=== PATIENT | male | born 1990 | race Two or more races ===

== ENCOUNTER 2017-02-24 22:41 | Inpatient (IN) | payer BC, MEDICAID ==
[~2017-02-24] VITALS: Ht 175.3 cm; Wt 79.7 kg
[2017-02-24 23:15] LABS: Basophils # (auto) 0 uL; Basophils % (auto) 0.1 % (0.0-2.0); Eosinophils # (auto) 0.1 uL; Eosinophils % (auto) 0.8 % (0.0-7.0); Hematocrit 50.8 % (41.0-53.0); Hemoglobin 17.3 g/dL (13.5-17.5); Lymphocytes # (auto) 0.6 uL; Lymphocytes % (auto) 5.4 % (10.0-50.0); Mean Corpuscular Hgb Conc. 34.1 g/dL (32.0-36.0); Monocytes # (auto) 0.4 uL; Monocytes % (auto) 3.3 % (0.0-12.0); Neutrophils # (auto) 9.7 uL; Neutrophils % (auto) 90.4 % (37.0-80.0); Platelet Count (auto) 279 10^3/uL (140-450); Red Cell Distribution Width 12.9 % (11.6-16.0); White Blood Cell 10.7 10^3/uL (4.4-10.8)
[2017-02-24 23:17] LABS: Urine Bilirubin Negative (Negative); Urine Blood Negative /uL (Negative); Urine Color Yellow (Yellow); Urine Nitrite Negative (Negative); Urine RBC <1 /hpf (0 - 3); Urine Urobilinogen Normal (Negative)
[2017-02-24 23:21] LABS: Urine Glucose 4+ mg/dL (Normal); Urine Ketone 2+ (Negative)
[2017-02-24 23:36] LABS: Albumin 3.7 g/dL (3.4-5.0); BUN/Creatinine Ratio 21.7; Calcium 8.6 mg/dL (8.5-10.1); Potassium 3.7 mmol/L (3.5-5.1)
[2017-02-24 23:39] LABS: Bilirubin, Total 1.4 mg/dL (0.2-1.0); Total Protein 7.4 g/dL (6.4-8.2)
[2017-02-25] MEDS ORDERED: SODIUM CHLORIDE 0.9% 2,000 ML IV ONE (01:15)
[2017-02-25] MEDS ORDERED: ONDANSETRON HCL 4 MG/2 ML VIAL IV ONE (01:15)
[2017-02-25] MEDS ORDERED: D5W/ SOD CHL 0.9%/KCL 20MEQ 1,000 ML IV ONE (03:15)
[2017-02-25] MEDS ORDERED: InsuLIN REG 1unit/0.01ml Soln (100units/ml) IV ONE (03:15)
[2017-02-25] MEDS ORDERED: InsuLIN REG 1unit/0.01ml Soln (100units/ml) SC ONE (04:15)
[2017-02-25 04:24] LABS: Allen Test Yes; Base Excess 1.7 mmol/L (-2.0-2.0); Blood 02Sat 96.1 % (96-100); Blood COHb 0.6 % (0.5-1.5); Blood MetHb 0.2 % (0.0-1.5); HCO3 25.3 mmol/L (22-26.0); HHb 3.9 % (0.0-5.0); MODE ROOM AIR; O2Hb 95.3 % (94.0-97.0); PCO2 36.9 mmHg (35.0-45.0); PCO2(T) 36.9 mmHg (35.0-45.0); PO2 87.8 mmHg (80.0-100.0); PO2(T) 87.8 mmHg (80.0-100.0); Sample Type Arterial; pH 7.454 (7.350-7.450)
[2017-02-25] MEDS ORDERED: SODIUM CHLORIDE 0.9% 1,000 ML IV SCH (04:42)
[2017-02-25] MEDS ORDERED: DEXTROSE (50%) 50ML SYRG IV PRN (04:45)
[2017-02-25] MEDS ORDERED: HYDROcodone-ACET 5/325MG TAB PO PRN (04:45)
[2017-02-25] MEDS ORDERED: ACETAMINOPHEN 325 MG TAB PO PRN (04:45)
[2017-02-25] MEDS ORDERED: TEMAZEPAM 15 MG CAP PO PRN (04:45)
[2017-02-25] MEDS ORDERED: POTASSIUM CHL 20MEQ/100ML 100 ML IV ONE (04:45)
[2017-02-25] MEDS: SODIUM CHLOR 0.9% PF (SALINE LOCK) 10ML VIAL IV SCH ×3 (06:29→22:02)
[2017-02-25] MEDS ORDERED: INSLANTI SC (06:55)
[2017-02-25 07:06] VITALS: BP 127/68
[2017-02-25 08:00] VITALS: BP 127/68
[2017-02-25] MEDS: ACCU-CHEK COMFORT CURVE STRIP VI SCH ×4 (08:00→20:23)
[2017-02-25] MEDS: InsuLIN REG 1unit/0.01ml Soln (100units/ml) SC SCH ×4 (08:00→20:23)
[2017-02-25 09:00] VITALS: BP 127/68
[2017-02-25] MEDS: FAMOTIDINE (10MG/ML) 2ML VL IV SCH ×2 (09:57→22:12)
[2017-02-25] MEDS: ONDANSETRON HCL 4 MG/2 ML VIAL IV PRN ×2 (10:42→20:24)
[2017-02-25] MEDS ORDERED: INSUINJ37 SC (11:22)
[2017-02-25] MEDS: MORPHINE SULF INJ 2 MG/ML SYRINGE 1ML IV PRN ×2 (12:29→16:50)
[2017-02-25 13:00] VITALS: BP 117/66
[2017-02-25 17:00] VITALS: BP 115/66
[2017-02-25 22:00] VITALS: BP 128/70
[2017-02-26] MEDS: ACCU-CHEK COMFORT CURVE STRIP VI SCH ×6 (03:39→19:55)
[2017-02-26] MEDS: InsuLIN REG 1unit/0.01ml Soln (100units/ml) SC SCH ×6 (03:40→19:55)
[2017-02-26] MEDS: SODIUM CHLOR 0.9% PF (SALINE LOCK) 10ML VIAL IV SCH ×3 (05:03→22:00)
[2017-02-26 05:37] VITALS: BP 101/60
[2017-02-26 06:29] LABS: Basophils # (auto) 0 uL; Basophils % (auto) 0.6 % (0.0-2.0); Eosinophils # (auto) 0.2 uL; Eosinophils % (auto) 4.2 % (0.0-7.0); Hematocrit 41.4 % (41.0-53.0); Lymphocytes # (auto) 1.3 uL; Lymphocytes % (auto) 24.5 % (10.0-50.0); Mean Corpuscular Hemoglobin 29.3 pg (28.0-32.0); Mean Corpuscular Hgb Conc. 33.8 g/dL (32.0-36.0); Mean Corpuscular Volume 86.5 fL (80.0-100.0); Mean Platelet Volume 9.1 fL (7.4-10.4); Monocytes # (auto) 0.7 uL; Monocytes % (auto) 12.3 % (0.0-12.0); Neutrophils # (auto) 3.2 uL; Neutrophils % (auto) 58.4 % (37.0-80.0); Platelet Count (auto) 234 10^3/uL (140-450); Red Cell Distribution Width 13.1 % (11.6-16.0); White Blood Cell 5.4 10^3/uL (4.4-10.8)
[2017-02-26 06:54] LABS: Albumin 2.6 g/dL (3.4-5.0); BUN/Creatinine Ratio 12.3; Bilirubin, Total 0.4 mg/dL (0.2-1.0); Calcium 7.8 mg/dL (8.5-10.1); Potassium 3.4 mmol/L (3.5-5.1); Total Protein 5.4 g/dL (6.4-8.2)
[2017-02-26 08:00] VITALS: BP 120/66
[2017-02-26] MEDS: FAMOTIDINE (10MG/ML) 2ML VL IV SCH ×2 (09:19→22:00)
[2017-02-26 13:00] VITALS: BP 123/75
[2017-02-26 17:00] VITALS: BP 116/59
[2017-02-26] MEDS: FLUCONAZOLE 100 MG TAB PO SCH (17:16)
[2017-02-26 22:00] VITALS: BP 124/87
[2017-02-26] MEDS: CLOTRIMAZOLE W/ BETAMETH TOPICAL CR 15 GM TUBE TOP SCH (22:01)
[2017-02-26] MEDS: INSULIN DETEMIR(LEVEMIR) 1unit/0.01ml Soln (100units/ml) SC SCH (22:12)
[2017-02-27] MEDS: ACCU-CHEK COMFORT CURVE STRIP VI SCH ×3 (00:05→08:06)
[2017-02-27] MEDS: InsuLIN REG 1unit/0.01ml Soln (100units/ml) SC SCH ×3 (04:00→08:12)
[2017-02-27 05:00] VITALS: BP 101/54
[2017-02-27] MEDS: SODIUM CHLOR 0.9% PF (SALINE LOCK) 10ML VIAL IV SCH (05:47)
[2017-02-27 06:13] LABS: Basophils # (auto) 0 uL; Basophils % (auto) 0.7 % (0.0-2.0); Eosinophils # (auto) 0.2 uL; Eosinophils % (auto) 3.6 % (0.0-7.0); Hematocrit 47.4 % (41.0-53.0); Hemoglobin 15.8 g/dL (13.5-17.5); Lymphocytes # (auto) 1.4 uL; Mean Corpuscular Hemoglobin 29.1 pg (28.0-32.0); Mean Corpuscular Hgb Conc. 33.4 g/dL (32.0-36.0); Mean Corpuscular Volume 86.9 fL (80.0-100.0); Mean Platelet Volume 9.3 fL (7.4-10.4); Monocytes # (auto) 0.7 uL; Monocytes % (auto) 13.2 % (0.0-12.0); Neutrophils # (auto) 2.7 uL; Neutrophils % (auto) 54.5 % (37.0-80.0); Platelet Count (auto) 260 10^3/uL (140-450); Red Cell Distribution Width 13.1 % (11.6-16.0)
[2017-02-27 06:35] LABS: BUN/Creatinine Ratio 8.7; Calcium 8.4 mg/dL (8.5-10.1); Potassium 3.3 mmol/L (3.5-5.1)
[2017-02-27 06:37] LABS: Bilirubin, Total 0.4 mg/dL (0.2-1.0); Total Protein 6.5 g/dL (6.4-8.2)
[2017-02-27 09:00] VITALS: BP 123/72
[2017-02-27] MEDS: INSULIN DETEMIR(LEVEMIR) 1unit/0.01ml Soln (100units/ml) SC SCH (10:00)
[2017-02-27] MEDS: FAMOTIDINE (10MG/ML) 2ML VL IV SCH (10:06)
[2017-02-27] MEDS: FLUCONAZOLE 100 MG TAB PO SCH (10:06)
[2017-02-27] MEDS: CLOTRIMAZOLE W/ BETAMETH TOPICAL CR 15 GM TUBE TOP SCH (10:10)
== END 2017-02-27 12:23 | disposition home or self-care (01) | DRG 639 ==
LOC: ER 22:46 → TELE 22:47 → TELE-WESTW 02-25 06:10
PROVIDERS: ADMIT Emergency Medicine; ATTEND Internal Medicine
DX: E10.10 Type 1 diabetes mellitus with ketoacidosis without coma (principal); Z79.4 Long term (current) use of insulin; Z83.3 Family history of diabetes mellitus; Z91.19 Patient's noncompliance with other medical treatment and regimen; Z82.49 Family history of ischemic heart disease and other diseases of the circulatory system
CPT/HCPCS: 36415; 36600; 71010; 74176; 80053; 80307; 81001; 82010; 82805; 82962; 83690; 85025; 93005; 96361; 96365; 96375; J1815; J2405; J3490

== ENCOUNTER 2017-08-20 17:22 | Emergency (ER) | payer BC ==
[~2017-08-20] VITALS: Ht 172.7 cm; Wt 79.4 kg
[~2017-08-20 17:22] MED LIST: INSUINJ37 SC
[2017-08-20 17:30] VITALS: BP 132/86
[2017-08-20 18:12] LABS: Basophils # (auto) 0.1 uL; Basophils % (auto) 0.9 % (0.0-2.0); Eosinophils # (auto) 0.1 uL; Eosinophils % (auto) 1.4 % (0.0-7.0); Hematocrit 46.1 % (41.0-53.0); Hemoglobin 15.9 g/dL (13.5-17.5); Lymphocytes # (auto) 1.5 uL; Lymphocytes % (auto) 26.8 % (10.0-50.0); Mean Corpuscular Hemoglobin 29.6 pg (28.0-32.0); Mean Corpuscular Hgb Conc. 34.5 g/dL (32.0-36.0); Mean Corpuscular Volume 85.7 fL (80.0-100.0); Mean Platelet Volume 8.6 fL (6.9-10.8); Monocytes # (auto) 0.8 uL; Monocytes % (auto) 13.9 % (0.0-12.0); Neutrophils # (auto) 3.2 uL; Nucleated Red Blood Cells % 0.2 %; Platelet Count (auto) 259 10^3/uL (140-450); Red Cell Distribution Width 12.9 % (11.8-14.3); White Blood Cell 5.5 10^3/uL (4.4-10.8)
[2017-08-20 18:30] LABS: Albumin 3.4 g/dL (3.4-5.0); BUN/Creatinine Ratio 17.6; Calcium 9.1 mg/dL (8.5-10.1); Magnesium 2.1 mg/dL (1.6-2.6); Potassium 4.2 mmol/L (3.5-5.1)
[2017-08-20 18:32] LABS: Bilirubin, Total 0.3 mg/dL (0.2-1.0); Total Protein 7.1 g/dL (6.4-8.2)
[2017-08-20] MEDS ORDERED: SODIUM CHLORIDE 0.9% 1,000 ML IV ONE (19:30)
[2017-08-20] MEDS ORDERED: cefTRIAXone 1GM/50ML D5W 50 ML IV ONE (19:45)
[2017-08-20] MEDS ORDERED: FLUCONAZOLE 100 MG TAB PO ONE (20:00)
== END 2017-08-20 21:33 | disposition home or self-care (01) ==
LOC: ER 17:22
DX: N39.0 Urinary tract infection, site not specified (principal); E10.65 Type 1 diabetes mellitus with hyperglycemia; B37.49 Other urogenital candidiasis; E74.8 Other specified disorders of carbohydrate metabolism
CPT/HCPCS: 36415; 80053; 82010; 82962; 83735; 85025; 96365; 99284; J0696; J7030

== ENCOUNTER 2017-12-12 21:24 | Emergency (ER) | payer BC, OTHER ==
[~2017-12-12] VITALS: Ht 172.7 cm; Wt 81.6 kg
[2017-12-12 22:00] VITALS: BP 112/73
[2017-12-13] MEDS ORDERED: BACITRACIN TOP OINT 1 UD PKG TOP ONE (01:00)
[2017-12-13] MEDS ORDERED: TETANUS-DIPTH-ACEL PERTUSSIS 0.5ML SYRG IM ONE (01:00)
[2017-12-13] MEDS ORDERED: LIDOCAINE 1% HCL (LOCAL ANESTH.) INJ 20ML MDV ONE (01:34)
== END 2017-12-13 02:30 | disposition home or self-care (01) ==
LOC: ER 21:31
DX: S61.213A Laceration without foreign body of left middle finger without damage to nail, initial encounter (principal); E11.9 Type 2 diabetes mellitus without complications; Z79.4 Long term (current) use of insulin; W45.8XXA Other foreign body or object entering through skin, initial encounter; Y93.89 Activity, other specified; Y92.89 Other specified places as the place of occurrence of the external cause; Y99.0 Civilian activity done for income or pay
CPT/HCPCS: 12002; 73140; 90471; 90715; 99284; J2001

== ENCOUNTER → 2018-05-27 | Emergency (ER) | payer OTHER | END | disposition left against medical advice (07) | LOC: ER 04:48 | DX: Z76.0 Encounter for issue of repeat prescription (principal); Z53.21 Procedure and treatment not carried out due to patient leaving prior to being seen by health care provider ==